=== PATIENT | male | born 1995 | race Caucasian/White ===

== ENCOUNTER 2016-06-10 14:15 | Inpatient (IN) | payer OTHER ==
--- NOTE | ~2016-06-10 | PN ---
Unit #: [id number] #: [id number] Patient: BABAK GAYLE [id number] [facility] [address] [place] [address] [id number] MR#: [id number] NAME: BABAK GAYLE ROOM: P131 Age: 20 Sex: M Admission Date: 06/10/2016 : 1995 Attending Physician: Jorgito Garg M.D. Admitting Physician: Jorgito Garg M.D. Primary Care Physician: Generic Doctor Not In System [facility] PROGRESS NOTES DATE 06/13/2016 DISCUSSION The patient is less seclusive to room. He states that he is tolerating Zyprexa and sleeping well. On query today as to where he will go once discharged from the hospital, he states, "wherever the [facility] decides to send me." I have explained to the patient the [facility] will play no role in his disposition and that he will be free to go wherever he wishes once discharged from the hospital. Dictated by... Jorgito Garg M.D. CB/sarath TD: 06/13/2016 15:44 JOB #: [id number] [facility] PROGRESS NOTES Page 1 of 1 X Jorgito Garg MD X PROGRESS NOTE
--- NOTE | ~2016-06-10 | PN ---
Unit #: [id number] #: [id number] Patient: BABAK GAYLE [id number] [facility] [address] [place] [address] [id number] MR#: [id number] NAME: BABAK GAYLE ROOM: 31 Age: 20 Sex: M Admission Date: 06/10/2016 : 1995 Attending Physician: Jorgito Garg M.D. Admitting Physician: Jorgito Garg M.D. Primary Care Physician: Generic Doctor Not In System [facility] PROGRESS NOTES DATE 06/15/2016 DISCUSSION The patient appears to be sustaining improvement. He is less bizarre and disorganized in his interactions and is compliant with medications and silva routine. Should he sustain progress, discharge will likely take place tomorrow. Dictated by... Jorgito Garg M.D. CB/raul TD: 06/15/2016 15:43 JOB #: [id number] [facility] PROGRESS NOTES Page 1 of 1 X Jorgito Garg MD X PROGRESS NOTE
--- NOTE | ~2016-06-10 | DS ---
Unit #: [id number] #: [id number] Patient: BABAK GAYLE [id number] [facility] [address] [place] [address] [id number] I MR#: [id number] NAME: BABAK GAYLE ROOM: [facility] Age: 20 Sex: M Admission Date: 06/10/2016 : 1995 Discharge Date: 06/17/2016 Attending Physician: Jorgito Garg M.D. Primary Care Physician: Generic Doctor Not In System DISCHARGE SUMMARY REASON FOR ADMISSION The patient is a 20-year-old white male, admitted in a state of florid psychosis. DIAGNOSTIC STUDIES LABORATORY RESULTS: Included urine drug screen positive for cannabis. Other labs were within normal limits. HOSPITAL COURSE The patient was admitted to the [address] [place] [address] unit and placed on suicide precautions. He was initially begun on Zydis 10 mg q.8 hours p.r.n. agitation due to psychosis. The patient was noted to be extremely disorganized and rapid in his speech on 06/11/2016, leading this physician to believe that he was probably exhibiting symptoms of a bipolar manic episode. Subsequently, he was thus begun on Zyprexa 15 mg at h.s., which he seemed to tolerate well. His sleep improved and his speech was more modulated and less tangential as his stay in the hospital progressed. He remained somewhat bizarre in his interactions with peers and staff and at the time of discharge, there remains some diagnostic uncertainty as to whether this may have been a substance induced i.e., synthetic marijuana episode, a first episode of bipolar margot or a first psychotic break related to a schizophrenic illness or perhaps even a brief reactive psychosis given the patient's current stressful life situation. Whatever the case, the patient had cleared sufficiently on 06/17/2016 and was denying suicidal ideation or psychotic symptoms. Discharge was ordered. FINAL DIAGNOSES Schizophreniform disorder. Please see above for further discussion of the differential diagnosis, cannabis use disorder. DISPOSITION ON DISCHARGE The patient is discharged on the following medications; Zyprexa 15 mg at bedtime for psychosis. DISCHARGE INSTRUCTIONS No dietary or physical restrictions were placed on the patient at the time of discharge. FOLLOWUP Followup will take place through the auspices of [facility] mental health resources. Unit #: [id number] #: [id number] Patient: BABAK GAYLE PROGNOSIS The patient's prognosis is considered fair. Dictated by... Jorgito Garg M.D. CB/param TD: 06/17/2016 23:50 JOB #: [id number] DISCHARGE SUMMARY Page 1 of 1 X Jorgito Garg MD X DISCHARGE SUMMARY
--- NOTE | ~2016-06-10 | PN ---
Unit #: [id number] #: [id number] Patient: BABAK GAYLE [id number] [facility] [address] [place] [address] [id number] MR#: [id number] NAME: BABAK GAYLE ROOM: [facility] Age: 20 Sex: M Admission Date: 06/10/2016 : 1995 Attending Physician: Jorgito Garg M.D. Admitting Physician: Jorgito Garg M.D. Primary Care Physician: Generic Doctor Not In System [facility] PROGRESS NOTES DATE 06/12/2016 DISCUSSION The patient is again noted to be somewhat hyper-talkative and simultaneously evasive during today's attempted interview. He did sleep well with initiation of Zyprexa last night and does not appear to be exhibiting any symptoms of oversedation with addition of this medication. Dictated by... Sosa Clements TD: 06/12/2016 13:23 JOB #: [id number] [facility] PROGRESS NOTES Page 1 of 1 X Jorgito Garg MD X PROGRESS NOTE
--- NOTE | ~2016-06-10 | PN ---
Unit #: [id number] #: [id number] Patient: BABAK GAYLE [id number] [facility] [address] [place] [address] [id number] MR#: [id number] NAME: BABAK GAYLE ROOM: 31 Age: 20 Sex: M Admission Date: 06/10/2016 : 1995 Attending Physician: Jorgito Garg M.D. Admitting Physician: Jorgito Garg M.D. Primary Care Physician: Generic Doctor Not In System [facility] PROGRESS NOTES DATE 06/16/2016 DISCUSSION The patient complains of occasional feelings of lightheadedness but is otherwise in brighter spirits. He states that he plans to go to the [facility] following his discharge from the hospital. I have explained to the patient that we cannot provide transportation to that area and that he will need to make his own reservations for transportation, and discharge will likely take place tomorrow. Dictated by... Jorgito Garg M.D. CB/juana TD: 06/16/2016 14:17 JOB #: [id number] [facility] PROGRESS NOTES Page 1 of 1 X Jorgito Garg MD X PROGRESS NOTE
--- NOTE | ~2016-06-10 | PA ---
Unit #: [id number] #: [id number] Patient: BABAK GAYLE [id number] [facility] [address] [place] [address] [id number] I MR#: [id number] NAME: BABAK GAYLE ROOM: P131 Age: 20 Sex: M Admission Date: 06/10/2016 : 1995 Date of Assessment: 06/11/2016 Attending Physician: Jorgito Garg M.D. Admitting Physician: Jorgito Garg M.D. Primary Care Physician: Generic Doctor Not In System PSYCHIATRIC ASSESSMENT IDENTIFYING INFORMATION The patient is a 20-year-old white male admitted to the [address] [place] [address] unit after he had been taken to [facility] by police in a state of florid psychosis. INFORMANT(S) Patient. RELIABILITY Fair. CHIEF COMPLAINT I am manic depressive. HISTORY OF PRESENT ILLNESS The patient is a 20-year-old single white male who reports no prior history of psychiatric treatment. The patient was brought to this facility from [facility] where he had been taken by police. The patient reports that he and his 19-year-old younger brother had been wandering in a automobile lot when they were confronted by the pig handler of the automobile lot and the police were called. The patient gives a quite convoluted story of being in [place] consorting with methamphetamine addicts though he denies abuse himself. The patient reports that Peter and Job from the Bible are talking to him. 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 Patient is currently homeless. He reports that he is originally from [place], [place] but has lived in [place]. More recently, he was in [place] and now is in [place]. He never gives an adequate description of why he is in the [place] area though he does allude to having been expelled from the domicile he had previously shared with his sister and [id number]. The patient reports no current suicidal or homicidal ideation. Denies prior suicide attempts or gestures. He denies any prior psychiatric contact. Denies abuse of any psychoactive substances though he does apart from cannabis. PAST PSYCHIATRIC HISTORY None. FAMILY HISTORY Noncontributory. SOCIAL HISTORY As noted previously, the patient is originally from [place]. He Unit #: [id number] #: [id number] Patient: BABAK GAYLE completed his GED and 3 semesters of college per his report. He does admit to abuse of cannabis. He denies abuse of other psychoactive substances. MEDICAL HISTORY Noncontributory. MEDICATION HISTORY None. ALLERGIES None. MENTAL STATUS EXAM At this time reveals the patient to be a thin white male appearing his stated age. He is in no apparent physical distress at the time of examination. He is awake, alert and oriented in all spheres. His mood is calm. His affect strained. Speech is rambling and hyperinclusive. There are no gross deficits in memory or cognition noted. Intelligence is judged to be in the average range based on fund of knowledge. The patient is cooperative throughout the interview. He is currently denying suicidal or homicidal ideation. He does report positive pentecostalism and paranoid delusional thinking. His judgement and insight appear to be significantly impaired. ASSETS AND LIABILITIES Patient's assets to be assessed. Liabilities, lack of resources, homeless. ADMITTING DIAGNOSES 1. Schizophreniform disorder. 2. Cannabis use disorder. PSYCHIATRIC PLAN/TREATMENT GOALS The patient remains hospitalized for safety and stabilization. We will begin a trial of Zyprexa 15 mg at h.s. at this point. Our differential diagnosis would also include bipolar disorder, manic phase but there is an affective blunting to the patient which seems more consistent with new onset of a schizophrenic illness. ESTIMATED LENGTH OF STAY Ten days. Dictated by... Jorgito Garg M.D. YA/raul TD: 06/11/2016 15:07 JOB #: [id number] Unit #: [id number] #: [id number] Patient: BABAK GAYLE PSYCHIATRIC ASSESSMENT Page 1 of 1 X Jorgito Garg MD X PSYCHIATRIC ASSESSMENT
--- NOTE | ~2016-06-10 | HP ---
Unit #: [id number] #: [id number] Patient: GOLDEN GAYLE [id number] [facility] [address] [place] [address] [id number] I MR#: [id number] NAME: GOLDEN GAYLE ROOM: 31 Age: 20 Sex: M Admission Date: 06/10/2016 : 1995 Attending Physician: Jorgito Garg M.D. Admitting Physician: Jorgito Garg M.D. Primary Care Physician: Generic Doctor Not In System HISTORY AND PHYSICAL HISTORY OF PRESENT ILLNESS Golden is a 20 year old, admitted to [address] [place] [address] with psychotic behavior. He reports auditory hallucinations from Job and Peter from the bible. He is a poor historian so his history is taken from his chart. PAST MEDICAL HISTORY Nothing significant. PAST SURGICAL HISTORY Nothing reported or known. ALLERGIES No known drug allergies. SOCIAL HISTORY He does not smoke, drinks alcohol on occasion, admits to using marijuana on a daily basis. FAMILY HISTORY Medically not known. REVIEW OF SYSTEMS He does not answer all questions appropriately. There are no reports of nausea, vomiting, or diarrhea. He has had no cough or increased temperature. CURRENT MEDICATIONS 1. Zyprexa Zydis 10 mg q.8h p.r.n. 2. Milk of magnesia p.r.n. 3. Maalox p.r.n. 4. Tylenol p.r.n. PHYSICAL EXAMINATION GENERAL: Alert, thin, no apparent distress. VITAL SIGNS: Blood pressure 122/88, heart rate 88, respirations 16, and temperature 98.6. WEIGHT: 191 pounds. HEIGHT: 6 feet 4 inches. SKIN: Warm and dry without rash or lesion. HEENT: Normocephalic. TMs not viewed. Oral and nasal passages clear. Conjunctivae clear. PERRLA. EOMs intact. NECK: Supple without lymphadenopathy or thyromegaly. HEART: Regular rate and rhythm without murmur. Unit #: [id number] #: [id number] Patient: GOLDEN GAYLE LUNGS: Clear. ABDOMEN: Soft, nontender. : Not done. EXTREMITIES: No evidence of cyanosis, clubbing or edema. Moves all without focal deficit. NEUROLOGICAL: Unable to complete extended exam. He does move all extremities without focal deficit and photo graphics librarian is equal, and gait is normal. IMPRESSION Psychiatric admission. RECOMMENDATIONS Psychiatric, per psychiatrist. MEDICAL I see no contraindications to participating in facility's activities. MEDICAL PROGNOSIS Good. MEDICAL CONDITION Stable. Dictated by... Ayesha Enriquez P.A.-C. for Sosa [place]span[place]/debbie TD: 06/11/2016 11:22 JOB #: [id number] HISTORY AND PHYSICAL Page 1 of 1 X Ayesha Enriquez X HISTORY AND PHYSICAL
--- NOTE | ~2016-06-10 | PN ---
Unit #: [id number] #: [id number] Patient: BABAK GAYLE [id number] [facility] [address] [place] [address] [id number] I MR#: [id number] NAME: BABAK GAYLE ROOM: P131 Age: 20 Sex: M Admission Date: 06/10/2016 : 1995 Attending Physician: Jorgito Garg M.D. Admitting Physician: Jorgito Garg M.D. Primary Care Physician: Generic Doctor Not In System [facility] PROGRESS NOTES DATE 06/14/2013 DISCUSSION The patient remains somewhat odd in his interactions with this physician. For example, they are requesting a copy of "[employer]" book to read in his room. By the same token, his psychosis seems to be clearing. He is much less pressured and more insightful when seen today. He appears to be most likely approaching his psych baseline and states that he has two brothers in town. Should he sustain progress, discharge to take place as early as tomorrow. Dictated by... Jorgito Garg M.D. CB/sarath TD: 06/14/2016 15:24 JOB #: [id number] [facility] PROGRESS NOTES Page 1 of 1 X Jorgito Garg MD X PROGRESS NOTE
[2016-06-11 09:31] LABS: BASOPHIL% 0.3 % (0-2.5); EOSINOPHIL# 0.1 X10e3 (0-0.7); EOSINOPHIL% 1.2 % (0.0-7.0); HEMATOCRIT 43.8 % (38.0-50.0); HEMOGLOBIN 14.5 gm/dL (13.0-16.0); LYMPHOCYTE% 44.7 % (17.0-45.0); MEAN CELL VOLUME 85.7 FL (83-96); MEAN CORPUSCULAR HEMOGLOBIN 28.4 PG (28-34); MEAN CORPUSCULAR HGB CONC 33.1 g/dL (30-36); MEAN PLATELET VOLUME 8.4 FL (6.5-11.5); MONOCYTE# 0.7 X10e3 (0-1.0); MONOCYTE% 10.2 % (3.0-12.0); NEUTROPHIL# 2.9 X10e3 (1.5-7.1); NEUTROPHIL% 43.6 % (40-75); PLATELET COUNT 264 X10e3 (140-420); RED BLOOD COUNT 5.11 X10e (3.90-5.60); RED CELL DISTRIBUTION WIDTH 13.2 % (11.0-15.5); WHITE BLOOD COUNT 6.7 X10e3 (4.0-10.5)
[2016-06-11 09:50] LABS: DIFF IND NO
[2016-06-11 09:54] LABS: URINE APPEARANCE CLEAR; URINE BILIRUBIN NEG (NEG); URINE BLOOD NEG (NEG); URINE COLOR DK YELLOW; URINE GLUCOSE NEG (NEG); URINE KETONE 3+ (NEG); URINE LEUKOCYTE ESTERASE NEG (NEG); URINE NITRATE NEG (NEG); URINE PROTEIN TRACE (NEG); URINE SPECIFIC GRAVITY 1.027 (1.003-1.035)
[2016-06-11 10:04] LABS: THYROID STIMULATING HORMONE 0.96 uIU/ml (0.34-5.60)
[2016-06-11 10:10] LABS: AMPHETAMINE NEG (NEG); BARBITURATES NEG (NEG); BENZODIAZEPINES NEG (NEG); COCAINE NEG (NEG); MARIJUANA POS (NEG); OPIATES NEG (NEG); TRICYCLIC ANTIDEPRESSANTS NEG (NEG); U METHADONE NEG (NEG)
[2016-06-11 10:11] LABS: FREE THYROXIN (T4) 1.37 ng/dL (0.58-1.64)
[2016-06-11 10:18] LABS: ALBUMIN SERUM 4.1 g/dL (3.5-5.0); BILIRUBIN,TOTAL 1.3 mg/dL (0.2-2.0); BUN/CREATININE RATIO 18.57; CALCIUM SERUM 9.1 mg/dL (8.4-10.2); CREATININE SERUM 0.7 mg/dL (0.6-1.4); POTASSIUM 4.2 mmol/L (3.5-5.1); PROTEIN TOTAL SERUM 6.7 g/dL (6.0-8.3)
== END 2016-06-17 13:57 | disposition home or self-care (01) | DRG 885 ==
LOC: P1S 14:15
PROVIDERS: Specialist
DX: F20.81 Schizophreniform disorder (principal); F31.10 Bipolar disorder, current episode manic without psychotic features, unspecified
CPT/HCPCS: 80053; 80307; 81003; 84439; 84443; 85025